=== PATIENT | female | born 1945 | race Caucasian/White ===

== ENCOUNTER 2016-12-24 13:00 | Emergency (ER) | payer MEDICARE, OTHER ==
[~2016-12-24 13:00] MED LIST: ABILIFY2 PO; AKWA TEARS OP; AKWA TEARS15 ML OP; AMB10 PO; AMB5 PO; AMBIEN CR12.5 MG PO; AMOXIL500C PO; ARAVA20 PO; ASAB PO; ASABAYER PO; ATROPINE SUL1 % OP; ATV1 PO; BION TEARS OP; BONIVA3I IV; BUSPAR15 M1 PO; CAP50 PO; CELEXA20 PO; CELEXA40 MG PO; COR20 PO; COR40 PO; DCN100 PO; DITRO5 PO; DOCUSOFT S100 MG PO; DURA25 TOP; DURA75 TOP; DYAZIDE1 CAP PO; ENABLEX7.5 PO; ENDOCET1 TA3 PO; ESTRACE1 MG PO; FERROUS SULF324 MG PO; FLORA Q PO; HYOMAX-FT0.125 MG PO; LACRILUBEO OPH; LEVOTHROID25 MCG PO; LEVOTHYROXIN50 MCG PO; LIDODERM T; LIOR10 PO; LOM PO; LONOX2.5 MG PO; LOTEMAX OPH SUSP5 ML OPH; LOTEMAX0.5 % OP; MACRO50B PO; MAX25 PO; MICARDIS80 PO; MSCONT15 PO; MSCONTIN PO; NATURA2 OP; NEUR600 PO; NEVANAC OPH; NORCO1 TA1 PO; NORCO1 TAB PO; P1 PO; P5 PO; PERCOCET1 TA2 PO; PILOCARPINE7.5 MG OR; PLAVIX PO; PR25 PO; PREVALITE4 G1 PO; PYR100B PO; PYR200 PO; REG PO; RESTASIS OPH; ROMYCIN OPH; STOOL SOFTEN240 MG PO; SYN.05 PO; SYN075 PO; SYN1 PO; THERAPEUTIC PO; VALTREX1 GM PO; VIGAMOX OPH; X25 PO; X5 PO; XANAX1 MG PO; ZANAFLEX2 MG PO; ZOFRANODT8 PO; ZYPREXA ZYDI20 MG PO; ZYPREXA20 MG PO; [UNRECOGNIZED DRUG - OTHER]; [UNRECOGNIZED DRUG - REMARK]; [UNRECOGNIZED DRUG - REMARK]; [UNRECOGNIZED DRUG - REMARK]; [UNRECOGNIZED DRUG - REMARK]; [UNRECOGNIZED DRUG - REMARK]; [UNRECOGNIZED DRUG - REMARK]; [UNRECOGNIZED DRUG - REMARK]; [UNRECOGNIZED DRUG - REMARK]; [UNRECOGNIZED DRUG - REMARK]; [UNRECOGNIZED DRUG - REMARK]; [UNRECOGNIZED DRUG - REMARK]
== END 2016-12-24 17:35 | disposition home or self-care (01) ==
LOC: ER 13:00
DX: M54.9 Dorsalgia, unspecified (principal); G89.29 Other chronic pain; S70.02XD Contusion of left hip, subsequent encounter; I10 Essential (primary) hypertension; M32.9 Systemic lupus erythematosus, unspecified; Z90.710 Acquired absence of both cervix and uterus; Z88.2 Allergy status to sulfonamides; Z79.899 Other long term (current) drug therapy
CPT/HCPCS: 73502-LT; 96374; 99284; J1885